=== PATIENT | female | born 1980 | race Caucasian/White ===

== ENCOUNTER 2018-03-26 13:30 | Emergency (ER) | payer OTHER ==
[2018-03-26 13:42] VITALS: BP 117/56; PULSE 73; RESP 18; TEMP 97.8
--- NOTE | 2018-03-26 14:27 | ED ---
General Adult HPI - General Chief complaint: Skin/Abscess/Foreign Body Stated complaint: abscess on arm Time Seen by Provider: 03/26/18 14:07 Source: patient, RN notes reviewed Mode of arrival: ambulatory Limitations: no limitations - History of Present Illness Initial comments: Patient 37-year-old female presented to the emergency room today with a chief complaint of an abscess to the back of the right warm. She does not that it started approximately 6 days ago. She does admit that she checked herself into a rehab facility for IV drug use. She states that they placed her on Bactrim. She states is common larger over the last few days. There has been no drainage. Patient denies any other complaints or symptoms. She does admit that she's had abscesses in the past never had MRSA to her knowledge. Patient denies any recent fever, chills, shortness of breath, chest pain, back pain, abdominal pain, nausea or vomiting, numbness or tingling, or any other complaints. - Related Data Home Medications Medication Instructions Recorded Confirmed Acetaminophen [Tylenol 8 Hour] 650 mg PO Q4H 03/26/18 03/26/18 Chlorpheniramine Maleate 4 mg PO Q4H PRN 03/26/18 03/26/18 [Chlor-Trimeton] Ibuprofen [Motrin] 600 mg PO Q6HR PRN 03/26/18 03/26/18 Mirtazapine [Remeron] 30 mg PO HS PRN 03/26/18 03/26/18 Multivitamins, Thera [Multivitamin 1 tab PO DAILY 03/26/18 03/26/18 (formulary)] Sulfamethox-Tmp 800-160Mg [Bactrim 1 tab PO Q12HR 03/26/18 03/26/18 DS 800-160 mg] busPIRone HCl [Buspar] 10 mg PO TID PRN 03/26/18 03/26/18 Allergies Allergy/AdvReac Type Severity Reaction Status Date / Time Penicillins Allergy Rash/Hives Verified 03/26/18 14:11 Review of Systems ROS Statement: Those systems with pertinent positive or pertinent negative responses have been documented in the HPI. ROS Other: All systems not noted in ROS Statement are negative. Past Medical History Past Medical History: No Reported History History of Any Multi-Drug Resistant Organisms: None Reported Past Surgical History: No Surgical Hx Reported Past Psychological History: No Psychological Hx Reported Smoking Status: Current every day smoker Past Alcohol Use History: Daily Past Drug Use History: Cocaine, Heroin General Exam - General Exam Comments Initial Comments: General: The patient is awake and alert, in no distress, and does not appear acutely ill. Eye: Pupils are equal, round and reactive to light, extra-ocular movements are intact. No nystagmus. There is normal conjunctiva bilaterally. No signs of icterus. Ears, nose, mouth and throat: There are moist mucous membranes and no oral lesions. Neck: The neck is supple, there is no tenderness or JVD. Musculoskeletal: Normal ROM, no tenderness. Strength 5/5. Sensation intact. Pulses equal bilaterally 2+. Neurological: A&O x 3. CN II-XII intact, There are no obvious motor or sensory deficits. Coordination appears grossly intact. Speech is normal. Skin: Abscess to the back of the right forearm measuring approximately 3 cm x 2 cm. Psychiatric: Cooperative, appropriate mood & affect, normal judgment. Limitations: no limitations Course Vital Signs 03/26/18 13:39 Temperature 97.8 F Pulse Rate 73 Respiratory 18 Rate Blood Pressure 117/56 O2 Sat by Pulse 100 Oximetry Procedures - Procedures Initial comment: Procedure: Incision and drainage The skin overlying the abscess was prepped with Betadine, and anesthetized with 1% lidocaine without epinephrine. A #11 scalpel was then used to incise the abscess. Some purulent material was then extracted from the lesion. Wound culture obtained. Gauze dressing placed on top, The patient tolerated the procedure well. Medical Decision Making - Medical Decision Making Patient does have abscess in the right forearm. There is a fluctuant head. Was drained here in emergency room. Patient did well procedure. Culture has been obtained currently on Bactrim at this time. Patient is advised continue current antibiotics return here to emergency room symptoms increase or worsen or for Disposition Clinical Impression: Abscess Disposition: HOME SELF-CARE Condition: Good Instructions: Abscess (ED) Additional Instructions: Please continue warm compresses to the area at least 3-4 times daily. Please continue previously prescribed antibiotics. Please return to emergency room for any other concerns. Is patient prescribed a controlled substance at d/c from ED?: No Referrals: Nonstaff,Physician [Primary Care Provider] - 1-2 days Time of Disposition: 14:27
== END 2018-03-26 14:35 | disposition home or self-care (01) ==
LOC: EC 13:30
DX: L02.413 Cutaneous abscess of right upper limb (principal); F17.200 Nicotine dependence, unspecified, uncomplicated; Z88.0 Allergy status to penicillin; Z79.899 Other long term (current) drug therapy
CPT/HCPCS: 10060; 87070; 87077; 87186; 87205; 99283

== ENCOUNTER 2018-04-08 10:12 | Emergency (ER) | payer OTHER ==
[2018-04-08 10:35] VITALS: BP 114/73; PULSE 85; RESP 18; TEMP 98.5
--- NOTE | 2018-04-08 10:48 | ED ---
General Adult HPI - General Chief complaint: Dental/Oral Stated complaint: Abscess Tooth, Facial Swelling Time Seen by Provider: 04/08/18 10:39 Source: patient, RN notes reviewed Mode of arrival: ambulatory Limitations: no limitations - History of Present Illness Initial comments: Patient is a 37-year-old female presented to the emergency room today with chief complaint of increased dental pain and some swelling. She does admit that she has tasted some drainage. She does admit that she has tooth is missing tooth #8. She does have some redness above this area of the gumline locally tender. Patient denies any other complaints or symptoms. Patient denies any recent fever, chills, shortness of breath, chest pain, back pain, abdominal pain, nausea or vomiting, headaches or visual changes, or any other complaints. - Related Data Home Medications Medication Instructions Recorded Confirmed Acetaminophen [Tylenol 8 Hour] 650 mg PO Q4H 03/26/18 03/26/18 Chlorpheniramine Maleate 4 mg PO Q4H PRN 03/26/18 03/26/18 [Chlor-Trimeton] Ibuprofen [Motrin] 600 mg PO Q6HR PRN 03/26/18 03/26/18 Mirtazapine [Remeron] 30 mg PO HS PRN 03/26/18 03/26/18 Multivitamins, Thera [Multivitamin 1 tab PO DAILY 03/26/18 03/26/18 (formulary)] Sulfamethox-Tmp 800-160Mg [Bactrim 1 tab PO Q12HR 03/26/18 03/26/18 DS 800-160 mg] busPIRone HCl [Buspar] 10 mg PO TID PRN 03/26/18 03/26/18 Previous Rx's Medication Instructions Recorded Amoxicillin 500 mg PO Q8H 10 Days day 04/08/18 Ibuprofen [Motrin] 600 mg PO Q6HR PRN #40 day 04/08/18 Allergies Allergy/AdvReac Type Severity Reaction Status Date / Time Penicillins Allergy Rash/Hives Verified 04/08/18 10:35 Review of Systems ROS Statement: Those systems with pertinent positive or pertinent negative responses have been documented in the HPI. ROS Other: All systems not noted in ROS Statement are negative. Past Medical History Past Medical History: No Reported History History of Any Multi-Drug Resistant Organisms: None Reported Past Surgical History: No Surgical Hx Reported Past Psychological History: No Psychological Hx Reported Smoking Status: Current every day smoker Past Alcohol Use History: Daily Past Drug Use History: Cocaine, Heroin General Exam - General Exam Comments Initial Comments: General: The patient is awake and alert, in no distress, and does not appear acutely ill. Eye: Pupils are equal, round and reactive to light, extra-ocular movements are intact. No nystagmus. There is normal conjunctiva bilaterally. No signs of icterus. Ears, nose, mouth and throat: There are moist mucous membranes and no oral lesions. Patient does have some redness to the gumline of tooth #8. Local tenderness area. No abscess formation to drink. Uvula midline. Patient swallows without difficulty. Neck: The neck is supple, there is no tenderness or JVD. Musculoskeletal: Normal ROM, no tenderness. Strength 5/5. Sensation intact. Pulses equal bilaterally 2+. Neurological: A&O x 3. CN II-XII intact, There are no obvious motor or sensory deficits. Coordination appears grossly intact. Speech is normal. Skin: Skin is warm and dry and no rashes or lesions are noted. Psychiatric: Cooperative, appropriate mood & affect, normal judgment. Limitations: no limitations Course Vital Signs 04/08/18 10:33 Temperature 98.5 F Pulse Rate 85 Respiratory 18 Rate Blood Pressure 114/73 O2 Sat by Pulse 96 Oximetry Medical Decision Making - Medical Decision Making Patient does admit that she has a penicillin ALLERGY but can take amoxicillin. She's had this in the past. Patient will be given up her prescription for amoxicillin and advised to use salt water gargles and Listerine gargles. Advised to use tea bag in the gumline and advised to use Tylenol Motrin for pain. Disposition Clinical Impression: Dental abscess Disposition: HOME SELF-CARE Condition: Good Instructions: Dental Abscess (ED) Additional Instructions: Please use salt water gargles and or Listerine gargles. Please use teabag in the gumline. Please use antibiotic as prescribed. Please follow-up with family doctor in the next 2 days of symptoms have not improved. Please return to emergency room if the symptoms increase or worsen or for any other concerns. Prescriptions: Amoxicillin 500 mg PO Q8H 10 Days day Ibuprofen [Motrin] 600 mg PO Q6HR PRN #40 day PRN Reason: Pain Is patient prescribed a controlled substance at d/c from ED?: No Referrals: Nonstaff,Physician [Primary Care Provider] - 1-2 days Time of Disposition: 10:46
== END 2018-04-08 11:15 | disposition home or self-care (01) ==
LOC: EC 10:12
DX: K04.7 Periapical abscess without sinus (principal); F17.200 Nicotine dependence, unspecified, uncomplicated; Z88.0 Allergy status to penicillin
CPT/HCPCS: 99282